=== PATIENT | male | born 1965 | race African-American/Black ===

== ENCOUNTER 2023-04-27 16:41 | Outpatient (AMB) | payer OTHER, SELFPAY ==
--- NOTE | 2023-04-27 16:46 | HO.NEPHOV_ITS ---
HPI HPI Comments History of Present Illness Details I had the privilege of seeing Mr Sy in follow-up of his chronic kidney disease and hypertension. He claims to be compliant with medications. He has gained some weight. He denies taking nonsteroidal anti-inflammatories. He claims to be hydrated himself well. He does not check his blood pressure regularly at home but does it couple of times a month. He claimed that his blood pressure has been at goal at home. He denies any headache, visual disturbances, chest tightness, chest pressure, shortness of breath, paroxysmal nocturnal dyspnea, orthopnea, pedal edema, orthostatic symptoms. He takes all his antihypertensive medications in the morning and 2 hours after that he feels a little bit lightheaded. He has not had any physician follow-up for long time. He denies having a PCP. He wanted a refill of all his antihypertensive medications. [facility] Medical History (Updated 04/28/23 @ 13:18 by Arnie Briseno MD) Hypertension Chronic kidney disease Social History (Updated 04/27/23 @ 16:50 by Breann Robertson MA) Alcohol intake: never Patient Tobacco Use Status: Never used Tobacco Vital Signs 04/27/23 16:47 Height 5 ft 6 in Weight 218 lb 6 oz BMI 35.2 BP 150/100 H Blood Pressure Location Lt brachial Pulse 58 Pulse Source Pulse Oximeter Pulse Oximetry (%) 99 Oxygen Delivery Method Room Air Physical Exam Vital Signs: Last Vital Signs Pulse 58 04/27/23 16:47 BP 150/100 H 04/27/23 16:47 Pulse Ox 99 04/27/23 16:47 Oxygen Delivery Method Room Air 04/27/23 16:47 BMI result Body Mass Index 35.2 Const General: comfortable and no acute distress Orientation/consciousness: patient oriented x3 HEENT Head: Yes normocephalic Mouth: Normal oral and palatal mucosa present Eyes EOM: EOMs intact bilaterally Neck Neck: Yes supple Resp Auscultation: clear to auscultation bilaterally Cardio Jugular venous distension: no JVD Rate: regular rate GI Palpation (GI): Soft to palpation Auscultation: normal bowel sounds General: Yes no CVA tenderness Back/Spine/Pelvis Back: no CVA tenderness Skin General skin exam: no rashes or lesions noted Neuro General: patient oriented x3 and moves all extremities Extrem General: Yes no pedal edema Assessment & Plan Assessment & Plan (1) Hypertension: Code(s): I10 - Essential (primary) hypertension Qualifiers: Hypertension type: primary hypertension Qualified Code(s): I10 - Essential (primary) hypertension (2) CKD (chronic kidney disease) stage 3, GFR 30-59 ml/min: Code(s): N18.30 - Chronic kidney disease, stage 3 unspecified Qualifiers: Chronic kidney disease stage 3 subtype: stage 3a (GFR 45-59) Qualified Code(s): N18.31 - Chronic kidney disease, stage 3a Plan Mr Sy has longstanding hypertension and 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 He needs to lose some weight. He should cut back sodium in the diet. He needs to avoid nonsteroidal anti-inflammatories and maintain good hydration. I encouraged compliance with his medications. I asked him to take nifedipine and metoprolol in the morning and lisinopril at night. I encouraged him to monitor his blood pressure at home regularly. I ordered renal functions and urine for protein creatinine ratio. He denied having left ventricular hypertrophy, proteinuria or retinopathy. He may need Doppler of his renal arteries. I refilled all his antihypertensive medications. All questions answered. Follow-up appointment given. Orders: Orders Blood Urea Nitrogen 04/27/23 I10 - Essential (primary) hypertension Calcium 04/27/23 I10 - Essential (primary) hypertension Protein Creatinine Ratio, Ur 04/27/23 I10 - Essential (primary) hypertension Electrolytes 04/27/23 I10 - Essential (primary) hypertension Creatinine 04/27/23 I10 - Essential (primary) hypertension Medications: New 2 lisinopril 10 mg PO DAILY 90 tabs 1RF nifedipine ER 90 mg PO DAILY 90 tabs 1RF Refilled metoprolol succinate ER 50 mg PO DAILY 90 tabs 1RF Coding Level of Care Code Est Pt Level 4 (01905) Diagnoses Primary hypertension I10 Hypertension type: primary hypertension Stage 3a chronic kidney disease N18.31 Chronic kidney disease stage 3 subtype: stage 3a (GFR 45-59) Results Reviewed Nephrology Results: No Data to Display
[2023-04-27 16:47] VITALS: BP 150/100; PULSE 58; O2SAT 99; BMI 35.2
== END 2023-04-27 17:09 | disposition home or self-care (01) ==
PROVIDERS: Visit Provider Internal Medicine Nephrology
DX: I10 Essential (primary) hypertension (principal); N18.31 Chronic kidney disease, stage 3a
CPT/HCPCS: 99214

== ENCOUNTER → 2023-04-27 16:41 | Outpatient (BNVA) | payer OTHER, SELFPAY | PROVIDERS: Visit Provider Internal Medicine Nephrology | DX: I12.9 Hypertensive chronic kidney disease with stage 1 through stage 4 chronic kidney disease, or unspecified chronic kidney disease (principal); N18.31 Chronic kidney disease, stage 3a | CPT/HCPCS: 99212 ==

== ENCOUNTER 2023-06-08 14:35 | Outpatient (REF) | payer OTHER, SELFPAY ==
[2023-06-08 19:41] LABS: Anion Gap 11 (12-20); Blood Urea Nitrogen 11 mg/dL (9-16); Carbon Dioxide 29 mmol/L (22-29); Chloride 103 mmol/L (96-108); Estimated Glomerular Filt Rate > 60; Potassium 3.7 mmol/L (3.3-5.1); Sodium 139 mmol/L (135-145)
[2023-06-08 20:10] LABS: Creatinine Urine 62.52 mg/dL; Total Protein Urine Random < 7 mg/dL (<12)
== END 2023-06-08 14:36 | disposition home or self-care (01) ==
LOC: HO.HKASLDS 14:35
PROVIDERS: Visit Provider Internal Medicine Nephrology
DX: I10 Essential (primary) hypertension (principal)
CPT/HCPCS: 36415; 80051; 82310; 82565; 82570; 84156; 84520

== ENCOUNTER 2024-01-04 10:12 | Outpatient (AMB) | payer OTHER, SELFPAY ==
--- NOTE | 2024-01-04 10:17 | HO.NEPHOV_ITS ---
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 He claims to be compliant with medications. He has gained some weight. He denies taking nonsteroidal anti-inflammatories. He claims to be hydrated himself well. He does not check his blood pressure regularly at home but does it couple of times a month. He claimed that his blood pressure has been at goal at home. He denies any headache, visual disturbances, chest tightness, chest pressure, shortness of breath, paroxysmal nocturnal dyspnea, orthopnea, pedal edema, orthostatic symptoms. He has not had any physician follow-up for long time. He denies having a PCP. [facility] Medical History (Updated 04/28/23 @ 13:18 by Arnie Briseno MD) Hypertension Chronic kidney disease Social History Alcohol intake: never Patient Tobacco Use Status: Never used Tobacco Review of Systems Const All systems reviewed & are unremarkable except as noted in HPI and below Physical Exam Vital Signs: Last Vital Signs Pulse 62 01/04/24 10:18 BP 150/90 H 01/04/24 10:18 Pulse Ox 98 01/04/24 10:18 Oxygen Delivery Method Room Air 01/04/24 10:18 BMI result Body Mass Index 35.6 Const General: comfortable and no acute distress Orientation/consciousness: patient oriented x3 HEENT Head: Yes normocephalic Mouth: Normal oral and palatal mucosa present Eyes EOM: EOMs intact bilaterally Neck Neck: Yes supple Resp Auscultation: clear to auscultation bilaterally Cardio Jugular venous distension: no JVD Rate: regular rate GI Palpation (GI): Soft to palpation Auscultation: normal bowel sounds General: Yes no CVA tenderness Back/Spine/Pelvis Back: no CVA tenderness Skin General skin exam: no rashes or lesions noted Neuro General: patient oriented x3 and moves all extremities Extrem General: Yes no pedal edema Results Reviewed Nephrology Results: Sodium 139 mmol/L (135-145) 06/08/23 Potassium 3.7 mmol/L (3.3-5.1) 06/08/23 Chloride 103 mmol/L (96-108) 06/08/23 Carbon Dioxide 29 mmol/L (22-29) 06/08/23 BUN 11 mg/dL (9-16) 06/08/23 Creatinine 1.11 mg/dL (0.5-1.4) 06/08/23 Calcium 9.0 mg/dL (8.4-10.2) 06/08/23 Urine Creatinine 62.52 mg/dL 06/08/23 Protein/Creatinin Ratio TNP 06/08/23 Assessment & Plan Assessment & Plan (1) CKD (chronic kidney disease) stage 3, GFR 30-59 ml/min: Code(s): N18.30 - Chronic kidney disease, stage 3 unspecified Category: Medical Qualifiers: Chronic kidney disease stage 3 subtype: stage 3a (GFR 45-59) Qualified Code(s): N18.31 - Chronic kidney disease, stage 3a (2) Hypertension: Code(s): I10 - Essential (primary) hypertension Category: Medical Qualifiers: Hypertension type: primary hypertension Qualified Code(s): I10 - Es sential (primary) hypertension Plan Mr Sy has longstanding hypertension and 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 He needs to lose some weight. He should cut back sodium in the diet. He needs to avoid nonsteroidal anti-inflammatories and maintain good hydration. I encouraged compliance with his medications. I encouraged him to monitor his blood pressure at home regularly. I ordered renal functions and urine for protein creatinine ratio. He denied having left ventricular hypertrophy, proteinuria or retinopathy. He may need Doppler of his renal arteries as well as sleep study. I refilled all his antihypertensive medications. All questions answered. Follow-up appointment given Orders: Orders Creatinine Today I10 - Essential (primary) hypertension, N18.31 - Chronic kidney disease, stage 3a Blood Urea Nitrogen Today I10 - Essential (primary) hypertension, N18.31 - Chronic kidney disease, stage 3a Electrolytes Today I10 - Essential (primary) hypertension, N18.31 - Chronic kidney disease, stage 3a Medications: Refilled lisinopril 10 mg PO DAILY 90 tabs 1RF metoprolol succinate ER 50 mg PO DAILY 90 tabs 1RF nifedipine ER 90 mg PO DAILY 90 tabs 1RF Coding Level of Care Code Est Pt Level 4 (30729) Diagnoses Stage 3a chronic kidney disease N18.31 Chronic kidney disease stage 3 subtype: stage 3a (GFR 45-59) Primary hypertension I10 Hypertension type: primary hypertension
[2024-01-04 10:18] VITALS: BP 130/90; PULSE 62; O2SAT 98; BMI 35.6
== END 2024-01-04 10:49 | disposition home or self-care (01) ==
PROVIDERS: Visit Provider Internal Medicine Nephrology
DX: N18.31 Chronic kidney disease, stage 3a (principal); I10 Essential (primary) hypertension
CPT/HCPCS: 99214

== ENCOUNTER → 2024-01-04 10:12 | Outpatient (BNVA) | payer OTHER, SELFPAY | PROVIDERS: Visit Provider Internal Medicine Nephrology | DX: I12.9 Hypertensive chronic kidney disease with stage 1 through stage 4 chronic kidney disease, or unspecified chronic kidney disease (principal); N18.31 Chronic kidney disease, stage 3a | CPT/HCPCS: 99212 ==

== ENCOUNTER 2024-07-06 09:16 | Outpatient (AMB) | payer OTHER, SELFPAY ==
--- NOTE | 2024-07-06 09:27 | HO.NEPHOV ---
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 He claims to be compliant with medications. He has gained some weight. He denies taking nonsteroidal anti-inflammatories. He claims to be hydrated himself well. He does not check his blood pressure regularly at home but does it couple of times a month. He claimed that his blood pressure has been at goal at home. He denies any headache, visual disturbances, chest tightness, chest pressure, shortness of breath, paroxysmal nocturnal dyspnea, orthopnea, pedal edema, orthostatic symptoms. He has not blood pressure medication this morning yet [facility], [facility] Medical History (Updated 04/28/23 @ 13:18 by Arnie Briseno MD) Hypertension Chronic kidney disease Social History Alcohol intake: never Patient Tobacco Use Status: Never used Tobacco Review of Systems Const All systems reviewed & are unremarkable except as noted in HPI and below Physical Exam Vital Signs: Last Vital Signs Pulse 59 07/06/24 09:28 BP 162/100 H 07/06/24 09:28 Pulse Ox 96 07/06/24 09:28 Oxygen Delivery Method Room Air 07/06/24 09:28 BMI result Body Mass Index 35.2 Const General: comfortable and no acute distress Orientation/consciousness: patient oriented x3 HEENT Head: Yes normocephalic Mouth: Normal oral and palatal mucosa present Eyes EOM: EOMs intact bilaterally Neck Neck: Yes supple Resp Auscultation: clear to auscultation bilaterally Cardio Jugular venous distension: no JVD Rate: regular rate GI Palpation (GI): Soft to palpation Auscultation: normal bowel sounds General: Yes no CVA tenderness Back/Spine/Pelvis Back: no CVA tenderness Skin General skin exam: no rashes or lesions noted Neuro General: patient oriented x3 and moves all extremities Extrem General: Yes no pedal edema Assessment & Plan Assessment & Plan (1) CKD (chronic kidney disease) stage 3, GFR 30-59 ml/min: Code(s): N18.30 - Chronic kidney disease, stage 3 unspecified Category: Medical Qualifiers: Chronic kidney disease stage 3 subtype: stage 3a (GFR 45-59) Qualified Code(s): N18.31 - Chronic kidney disease, stage 3a (2) Hypertension: Code(s): I10 - Essential (primary) hypertension Category: Medical Qualifiers: Hypertension type: primary hypertension Qualified Code(s): I10 - Essential (primary) hypertension Plan Mr Sy has longstanding hypertension and 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 He needs to lose some weight. He should cut back sodium in the diet. He needs to avoid nonsteroidal anti-inflammatories and maintain good hydration. I encouraged compliance with his medications. I encouraged him to monitor his blood pressure at home regularly. I ordered renal functions for F/U . He denied having left ventricular hypertrophy, proteinuria or retinopathy. He may need Doppler of his renal arteries as well as sleep study. All questions answered. Follow-up appointment given Orders: Orders Creatinine 6 Months I10 - Essential (primary) hypertension, N18.31 - Chronic kidney disease, stage 3a Electrolytes 6 Months I10 - Essential (primary) hypertension, N18.31 - Chronic kidney disease, stage 3a Blood Urea Nitrogen 6 Months I10 - Essential (primary) hypertension, N18.31 - Chronic kidney disease, stage 3a Coding Level of Care Code Est Pt Level 4 (59974) Diagnoses Stage 3a chronic kidney disease N18.31 Chronic kidney disease stage 3 subtype: stage 3a (GFR 45-59) Primary hypertension I10 Hypertension type: primary hypertension
[2024-07-06 09:28] VITALS: BP 162/100; PULSE 59; O2SAT 96; BMI 35.2
--- OUTSIDE RECORDS SUMMARY | 2024-07-06 09:51 | XMS_ITS | Clinical Summary ---
Author Organization [place] [address] [facility] Address [facility] [place] [address] Phone Care Team Providers Care Software Configuration Manager Name Role Phone Geno Katz Primary Care Provider [phone] Allergies Active Allergy Reactions Criticality Noted Date Comments Fruit Extracts 07/05/2024 Fresh fruit Pollen Extracts 07/05/2024 Medications cetirizine (ZyrTEC) 10 mg tablet Take 1 tablet (10 mg total) by mouth 1 (one) time each day. 4 Active cholecalciferol (VITAMIN D-3) 50 mcg (2,000 unit) tablet Take 1 tablet (2,000 Units total) by mouth 1 (one) time each day. 3 Active omega-3 (FISH OIL) 360-1,200 mg capsule [place]-3 Fatty Acids ([employer] Fish Oil) 1200 MG CAPSULE DELAYED RELEASE- Take 1 Tablet by mouth daily. 4 Active naproxen (EC NAPROSYN) 500 mg EC tablet Take 1 tablet twice a day for 14 days. Take with food 28 tablet 5 Active cyclobenzaprine (FLEXERIL) 10 mg tablet Take 1 tablet (10 mg total) by mouth 3 (three) times a day if needed for muscle spasms for up to 7 days. 21 each 5 Active senna 8.6 mg tabletIndications :Constipation, unspecified constipation type Take 1 tablet (8.6 mg total) by mouth 1 (one) time each day. 90 each 1 5 01/02/20 25 Active lisinopriL (PRINIVIL,ZESTRIL ) 10 mg tabletIndications :Primary hypertension Take 1 tablet (10 mg total) by mouth 1 (one) time each day. 90 each 1 5 01/02/20 25 Active metoprolol succinate (TOPROL-XL) 50 mg 24 hr tabletIndications :Primary hypertension Take 1 tablet (50 mg total) by mouth 1 (one) time each day. 90 each 1 5 01/02/20 25 Active NIFEdipine CC (ADALAT CC) 90 mg 24 hr tabletIndications :Primary hypertension Take 1 tablet (90 mg total) by mouth 1 (one) time each day. 90 tablet 1 5 01/02/20 25 Active ibuprofen (ADVIL,MOTRIN) 800 mg tabletIndications :Chronic bilateral low back pain without sciatica Take 1 tablet (800 mg total) by mouth 1 (one) time each day if needed for mild pain (pain). 90 tablet 5 10/04/19 25 Active lisinopriL (PRINIVIL,ZESTRIL ) 10 mg tablet Take 1 tablet (10 mg total) by mouth 1 (one) time each day. 3 07/06/19 25 Discontinu ed(Reorder ) metoprolol succinate (TOPROL-XL) 50 mg 24 hr tablet Take 1 tablet (50 mg total) by mouth 1 (one) time each day. 3 07/06/19 25 Discontinu ed(Reorder ) NIFEdipine CC (ADALAT CC) 90 mg 24 hr tablet Take 1 tablet (90 mg total) by mouth 1 (one) time each day. 3 07/06/19 25 Discontinu ed(Reorder ) predniSONE (DELTASONE) 20 mg tablet Take 2 tablets daily for 3 days then take 1 tablet daily for 3 days, then half tablet daily for another 3 days. 4 07/06/19 25 Discontinu ed(Therapy completed) senna 8.6 mg tablet TAKE 1 TABLET (8.6 MG TOTAL) BY MOUTH 1 (ONE) TIME EACH DAY. 90 tablet 5 07/06/19 25 Discontinu ed(Reorder ) Active Problems Problem Noted Date Diagnosed Date Severe obesity (BMI 35.0-35. 9 with comorbidity) ([facility] V24, [facility] V28) 01/18/2024 Primary hypertension 04/10/2021 Encounters Date Type Department Care Team Description 07/05/2024 9:00 AM EDT Office Visit Internal Medicine - [address] [phone] Leonela Burnett, ELIZABETH Adult general medical examination (Primary Dx); Primary hypertension; Constipation, unspecified constipation type; Other fatigue; Chronic bilateral low back pain without sciatica; Screening for cardiovascular condition; Screening for prostate cancer 04/28/2024 9:30 AM EST Office Visit Walk-In Clinic - [address] [phone] Rakesh Cabrales NP Strain of left trapezius muscle, initial encounter (Primary Dx) 04/27/2024 Nurse Triage Internal Medicine - [address] [phone] Geno Katz, DO Back Pain from Last 3 Months Immunizations Name Administration Dates Next Due Tdap Tetanus diptheria acell ular pertussis (Boostrix; Adacel) 7yo and older 10/24/2021 Social History Tobacco Use Types Packs/Day Years Used Date Smoking Tobacco: Never Smokeless Tobacco: Never Tobacco Cessation:Counseling Given: Not Answered Sex and Gender Information Value Date Recorded Sex Assigned at Not on file Legal Sex Male 6:16 AM EST Gender Identity Not on file Sexual Orientation Not on file Obstetrics History Last Filed Vital Signs Vital Sign Reading Time Taken Comments Blood Pressure 122/78 07/05/2024 9:04 AM EDT Pulse 62 07/05/2024 9:04 AM EDT Temperature 36.4 ??C (97.5 ??F) 04/28/2024 9:39 AM ES T Respiratory Rate - - Oxygen Saturation 96% 04/28/2024 9:39 AM EST Inhaled Oxygen Concentration - - Weight 102 kg (224 lb) 07/05/2024 9:04 AM EDT Height 167.6 cm (5' 6 ) 07/05/2024 9:04 AM EDT Body Mass Index 36.15 07/05/2024 9:04 AM EDT Plan of Treatment Health Maintenance Due Date Last Done Comments Hepatitis B Vaccines (1 of 3 - 19+ 3-dose series) 1985 IPV Vaccines (2 of 3 - Adult catch-up series) 02/08/2006 01/11/2006 Zoster Vaccines (1 of 2) 2016 COVID-19 Vaccine (1 - 2023-2 5 season) 2023 Influenza Vaccine (Season Ended) 2024 Depression Screening 07/05/2025 07/05/2024 Hypertension/CHF/CAD Annual BMP Blood Test 07/05/2025 07/05/2024, 03/01/2024, 02/02/2023 Social Influencers of Health Screening 07/05/2025 07/05/2024 Cholesterol Screening (Lipid Panel) 07/05/2029 07/05/2024, 11/05/2022 DTaP,Tdap,and Td Vaccines (2 - Td or Tdap) 10/25/2031 10/24/2021 Colorectal Cancer Screening: Colonoscopy 05/18/2032 05/18/2022 Meningococcal ACWY Vaccine Aged Out 01/11/2006 N o longer eligible based on patient's age to complete this topic Hepatitis A Vaccines Aged Out 09/06/2006, 01/11/2006 No longer eligible based on patient's age to complete this topic Hepatitis C Screening Completed 05/01/2021 HIB Vaccines Aged Out No longer eligi ble based on patient's age to complete this topic HIV Screening Discontinued HPV Vaccines Aged Out No longer eligi ble based on patient's age to complete this topic MMR Vaccines Aged Out No longer eligi ble based on patient's age to complete this topic Meningococcal B Vaccine Aged Out No l onger eligible based on patient's age to complete this topic Pneumococcal Vaccine: 50+ Years Discontinued Pneumococcal Vaccine: Pediatrics (0 to 5 Years) and At-Risk Patients (6 to 64 Years) Aged Out No longer eligible based on patient's age to complete this topic RSV Immunization Patients Under 20 months Aged Out No longer eligible based on patient's age to complete this topic Varicella Vaccines Aged Out No longer eligible based on patient's age to complete this topic Procedures Procedure Name Priority Date/Time Associated Diagnosis Comments PROSTATE SPECIFIC ANTIGEN SCREEN Routine 07/05/2024 10:01 AM EDT Screening for prostate cancer LIPID PANEL WITH REFLEX TO DIRECT LDL Routine 07/05/2024 10:01 AM EDT Screening for cardiovascular condition BASIC METABOLIC PANEL Routine 07/05/2024 10:01 AM EDT Screening for cardiovascular condition HEPATIC FUNCTION PANEL Routine 07/05/2024 10:01 AM EDT Adult general medical examination TESTOSTERONE, TOTAL Routine 07/05/2024 1 0:01 AM EDT Other fatigue HM COLONOSCOPY Routine 05/18/2022 HEPATITIS C SCREENING Routine 05/01/2021 from Last 3 Months or Most Recently Relevant to Health Maintenance Results * Prostate specific antigen screen (07/05/2024 10:01 AM EDT) PSA 0.49 0.00 - 4.00 ng/mL LAB CHEMISTRY METHOD 07/05/2024 4:53 PM EDT [facility] Blood Venous blood specimen / Unknown Venipuncture / Unknown 07/05/2024 10:01 AM EDT 07/05/2024 10:01 AM EDT Narrative [facility] - 07/05/2024 4:53 PM EDT The Siemens Advia Centaur Chemiluminescent Immunoassay is used. Results obtained with different assay methods or kits cannot be used interchangeably. Results cannot be interpreted as absolute evidence of the presence or absence of malignant disease. us Leonela Burnett NP LAB BLOOD ORDERABLES Final Resul t [facility] [address] [place] [address], * (ABNORMAL) Lipid panel with reflex to direct LDL (07/05/2024 10:01 AM EDT) Cholesterol 207(H) 0 - 200 mg/dL LAB CHEMISTRY METHOD 07/05/2024 2:07 PM EDT [facility] Triglycerides 91 0 - 150 mg/dL LAB CHEMISTRY METHOD 07/05/2024 2:07 PM EDT [facility] HDL 60 >=40 mg/dL LAB CHEMISTRY METHOD 07/05/2024 2:07 PM EDT [facility] LDL Calculated 129(H) 0 - 100 mg/dL LAB CHEMISTRY METHOD 07/05/2024 2:07 PM EDT [facility] VLDL Cholesterol Sai 18.2 mg/dL LAB CHEMISTRY METHOD 07/05/2024 2:07 PM EDT [facility] Non HDL Chol. (LDL+VLDL) 147(H) <145 mg/dL LAB CHEMISTRY METHOD 07/05/2024 2:07 PM EDT [facility] Chol/HDL Ratio 3.5 0.0 - 4.4 LAB CHEMISTRY METHOD 07/05/2024 2:07 PM EDT [facility] Blood Venous blood specimen / Unknown Venipuncture / Unknown 07/05/2024 10:01 AM EDT 07/05/2024 10:01 AM EDT us Leonela Burnett NP LAB BLOOD ORDERABLES Final Resul t Performing Organization Address [facility]/ZIP Co de Phone Number [facility] [address] [place] [address], [place] [phone] * Testosterone, total (07/05/2024 10:01 AM EDT) Testosterone 474 229 - 902 ng/dL LAB CHEMISTRY METHOD 07/05/2024 6:12 PM EDT [facility] Blood Venous blood specimen / Unknown Venipuncture / Unknown 07/05/2024 10:01 AM EDT 07/05/2024 10:01 AM EDT us Leonela Burnett NP LAB BLOOD ORDERABLES Final Resul t [facility] [address] [place] [address], [place] [phone] * Hepatic function panel (07/05/2024 10:01 AM EDT) Total Protein 6.6 6.0 - 8.0 g/dL LAB CHEMISTRY METHOD 07/05/2024 2:07 PM EDT [facility] Albumin 3.6 3.2 - 5.0 g/dL LAB CHEMISTRY METHOD 07/05/2024 2:07 PM EDT [facility] Total Bilirubin 0.4 0.0 - 1.4 mg/dL LAB CHEMISTRY METHOD 07/05/2024 2:07 PM [facility] Bilirubin, Direct <0.1 0.0 - 0.3 mg/dL LAB CHEMISTRY METHOD 07/05[facility]2024 [facility] Bil[facility], Indirect [facility]Y METHOD 07/05/2024 2:[facility] Comment:Unable to calculate Indirect Bilirubin. ALT (SGPT) 21 10 - 60 unit/L LAB CHEMISTRY METHOD 07/05/2024 2:07 PM [facility] AST (SGOT) 17 10 - 42 unit/L LAB CHEMISTRY METHOD 07/05/2024 2:07 PM [facility] Alkaline Phosphatase 63 42 - 121 unit/L LAB CHEMISTRY METHOD 07/05/2024 2:07 PM T [facility] Blood Venous blood specimen / Unknown Venipuncture / Unknown 07/05/2024 10:01 AM EDT 07/05/2024 10:01 AM EDT Leonela Burnett NP LAB BLOOD ORDERABLES Final Resul t Performing Organization Address [facility]/ZIP Co de Phone Number [facility] [address] [place] [address], [place] [phone] * (ABNORMAL) Basic metabolic panel (07/05/2024 10:01 AM EDT) Sodium 143 133 - 145 mmol/L LAB CHEMISTRY METHOD 07/05/2024 2:05 PM [facility] Potassium 4.9 3.5 - 5.5 mmol/L LAB CHEMISTRY METHOD 07/05/2024 2:05 PM [facility] Chloride 112(H) 96 - 110 mmol/L LAB CHEMISTRY METHOD 07/05/2024 2:05 PM [facility] CO2 27 21 - 32 mmol/L LAB CHEMISTRY METHOD 07/05/2024 2:05 PM [facility] Anion Gap 4 3 - 11 LAB CHEMISTRY METHOD 07/05/2024 2:05 PM [facility] Glucose 83 70 - 100 mg/dL LAB CHEMISTRY METHOD 07/05/2024 2:05 PM [facility] BUN 11 5 - 25 mg/dL LAB CHEMISTRY METHOD 07/05/2024 2:05 PM [facility] Creatinine 1.28 0.70 - 1.30 mg/dL LAB CHEMISTRY METHOD 07/05/2024 2:05 PM [facility] eGFR 65 >=60 mL/min/1. 73m2 LAB CHEMISTRY METHOD 07/05/2024 2:05 PM [facility] Comment:Calculation based on the Chronic Kidney Disease Epidemiology Collaboration (CKD-EPI) equation refit without adjustment for race. BUN/Creatinine Ratio 8.6 LAB CHEMISTRY METHOD 07/05/2024 2:05 PM [facility] Calcium 9.3 8.5 - 10.5 mg/dL LAB CHEMISTRY METHOD 07/05/2024 2:05 PM [facility] Blood Venous blood specimen / Unknown Venipuncture / Unknown 07/05/2024 10:01 AM EDT 07/05/2024 10:01 AM EDT Leonela Burnett DIRECTOR HARDWARE LAB BLOOD ORDERABLES Final Resul t [facility] [address] [place] [address], * Colonoscopy (05/18/2022) Colonoscopy no interpretation , abstracted Anatomical Region Laterality Modality Other Historical Provider MD HEALTH MAINTENANCE Final Result * Hepatitis C Screening (05/01/2021) Hepatitis C Screening abstracted Historical Provider MD HEALTH MAINTENANCE Final Result from Last 3 Months or Most Recently Relevant to Health Maintenance Insurance [facility] [employer] Care Teams Software Configuration Manager Relationship Specialty Start Date End Date Geno Katz DO [address] [place] [address] PCP - General Internal Medicine 12/22/23
--- OUTSIDE RECORDS SUMMARY | 2024-07-06 09:51 | XMS_ITS | Clinical Summary ---
Author Organization [facility] Address [address] [facility] [address] [place] [address] Phone Care Team Providers Care Kiln Stacker Name Role Phone Jacinto Ulloa MD Primary Care Provider [phone] Allergies Active Allergy Reactions Criticality Noted Date Comments Fruit Extracts 11/03/2021 Medications omega-3 (FISH OIL) 1000 MG capsule Take 1,000 mg by mouth 2 (two) times a day Active cholecalciferol (VITAMIN D-3) 25 MCG (1000 UT) capsule Take 1,000 Units by mouth 1 (one) time each day Active metoprolol succinate XL (TOPROL XL) 50 MG 24 hr tablet Take 1 tablet (50 mg total) by mouth 1 (one) time each day Do not crush or chew. 90 tablet 3 11/03/2021 Active NIFEdipine XL (PROCARDIA XL) 60 MG 24 hr tablet Take 1 tablet (60 mg total) by mouth 1 (one) time each day Do not crush, chew, or split. 90 tablet 3 11/03/2021 Active Active Problems Problem Noted Date Diagnosed Date Severe obesity 04/10/2021 Hypertension 11/04/2020 Benign essential hypertension 08/20/2020 Immunizations Immunization Administration Dates Next Due Hep A, Unspecified 09/06/2006,01/11/2006 IPV 01/11/2006 Meningococcal, Unspecified 01/11/2006 Tdap 10/24/2021 Yellow Fever 01/11/2006 Family History Relation Status Comments Father Mother Social History Tobacco Use Types Packs/Day Years Used Date Smoking Tobacco: Never Smokeless Tobacco: Never Tobacco Cessation:Counseling Given: Not Answered Alcohol Use Standard Drinks/Week Comments No 0 (1 standard drink = 0.6 oz pur e alcohol) Sex and Gender Information Value Date Recorded Sex Assigned at Not on file Legal Sex Male 5:02 PM EST Gender Identity Not on file Sexual Orientation Not on file Last Filed Vital Signs Vital Sign Reading Time Taken Comments Blood Pressure 130/80 11/03/2021 1:31 PM EDT Pulse 70 11/03/2021 1:31 PM EDT Temperature - - Respiratory Rate - - Oxygen Saturation 98% 11/04/2020 1:57 PM EDT Inhaled Oxygen Concentration - - Weight 101 kg (221 lb 12.8 oz) 11/03/2021 1:31 P M EDT Height 167.6 cm (5' 6 ) 06/06/2019 12:00 PM EDT Body Mass Index 35.8 06/06/2019 12:00 PM EDT Plan of Treatment Health Maintenance Due Date Last Done Comments Hepatitis B Vaccine (1 of 3 - 19+ 3-dose series) 12/13 Colorectal Cancer Screening: Annual FOBT 12/14/2015 Colorectal Cancer Screening: Colonoscopy 12/14/2015 Colorectal Cancer Screening: Sigmoidoscopy 12/14/2015 Pneumococcal Vaccine: 50+ Years (1 of 1 - PCV) 017 Influenza Vaccine (Season Ended) 2024 Insurance Care Teams Kiln Stacker Relationship Specialty Start Date End Date Jacinto Ulloa MD PCP - General 03/04/20
--- OUTSIDE RECORDS SUMMARY | 2024-07-06 09:51 | XMS_ITS | Encounter Summary ---
Author Organization [facility] Address [address] [place] [address] Care Team Providers Care Admission Specialist Name Role Phone SterlingGeno Primary Care Provider [phone] Reason for Referral * Consultation (Routine) - Pending Review Specialty Diagnoses / Procedures Referred By Heidi cage Referred To Contact Physical Therapy Diagnoses Chronic bilateral low back pain without sciatica Leonela Burnett NP [address] [place] [id number] Phone: tel: fax: Referral ID Status Reason Start Date Expiration Date Visits Requested Visits Authorized [id number] Pending Review Specialty Services Required 07/05/2024 07/05/2025 1 1 Reason for Visit * Reason Comments Annual Exam Encounter Details Date Type Department Care Team (Late st Contact Info) Description 07/05/2024 9:00 AM EDT Office Visit Internal Medicine - [address] [phone] Leonela Burnett NP [address] [place] [phone] Adult general medical examination (Primary Dx); Primary hypertension; Constipation, unspecified constipation type; Other fatigue; Chronic bilateral low back pain without sciatica; Screening for cardiovascular condition; Screening for prostate cancer Social History Tobacco Use Types Packs/Day Years Used Date Smoking Tobacco: Never Smokeless Tobacco: Never Tobacco Cessation:Counseling Given: Not Answered Sex and Gender Information Value Date Recorded Sex Assigned at Not on file Legal Sex Male 6:16 AM EST Gender Identity Not on file Sexual Orientation Not on file documented as of this encounter Last Filed Vital Signs Vital Sign Reading Time Taken Comments Blood Pressure 122/78 07/05/2024 9:04 AM EDT Pulse 62 07/05/2024 9:04 AM EDT Temperature - - Respiratory Rate - - Oxygen Saturation - - Inhaled Oxygen Concentration - - Weight 102 kg (224 lb) 07/05/2024 9:04 AM EDT Height 167.6 cm (5' 6 ) 07/05/2024 9:04 AM EDT Body Mass Index 36.15 07/05/2024 9:04 AM EDT documented in this encounter Ordered Prescriptions Prescription Sig Dispense Quantity Refills Last Filled Start Date End Date ibuprofen (ADVIL,MOTRIN) 800 mg tabletIndications: Chronic bilateral low back pain without sciatica Take 1 tablet (800 mg total) by mouth 1 (one) time each day if needed for mild pain (pain). 90 tablet 07/05/2024 10/03/2024 NIFEdipine CC (ADALAT CC) 90 mg 24 hr tabletIndications: Primary hypertension Take 1 tablet (90 mg total) by mouth 1 (one) time each day. 90 tablet 1 07/05/2024 01/01/2025 metoprolol succinate (TOPROL-XL) 50 mg 24 hr tabletIndications: Primary hypertension Take 1 tablet (50 mg total) by mouth 1 (one) time each day. 90 each 1 07/05/2024 01/01/2025 lisinopriL (PRINIVIL,ZESTRIL) 10 mg tabletIndications: Primary hypertension Take 1 tablet (10 mg total) by mouth 1 (one) time each day. 90 each 1 07/05/2024 01/01/2025 senna 8.6 mg tabletIndications: Constipation, unspecified constipation type Take 1 tablet (8.6 mg total) by mouth 1 (one) time each day. 90 each 1 07/05/2024 01/01/2025 documented in this encounter Progress Notes * Leonela Burnett NP - 07/05/2024 9:00 AM EDT CHIEF COMPLAINT: Chief Complaint Patient presents with Annual Exam HPI: Kerrie Daniels is a 58 y.o. old male who presents for evaluation of general medical health. - HTN on Nifedipine 90 mg daily, Lisinopril 10 mg daily and Metoprolol 50 mg daily, blood pressure 122/78 today. Denies headache, dizzoness, chest pain or dyspnea - Constipation on senna and prune juice as needed with relief -Request to check testosterone level due to intermittent fatigue - Chronic back pain, x-ray revealed mild arthritis in 2023, has tried Ibuprofen 800 mg daily as needed with relief. Will refer to PT stretching exercises to maintain joint flexibility Eye: UTD Dental: UTD Exercise: walking and treadmills regularly Health Maintenance Due Topic Date Due Hepatitis B Vaccines (1 of - 19+ 3-dose series) Never done IPV Vaccines (2 of 3 - Adult catch-up series) 02/08/2006 Pneumococcal Vaccine: 50+ Years (1 of 1 - PCV) Never done Zoster Vaccines (1 of 2) Never done Depression Screening Never done HIV Screening Never done Social Influencers of Health Screening Never done COVID-19 Vaccine (2023-) Never done ROS: GENERAL: See HPI HEENT: No changes in hearing or vision, nose bleeds or other nasal problems NECK: No lumps, goiter, pain or significant neck swelling RESPIRATORY: No cough, wheezing or shortness of breath CARDIOVASCULAR: No chest pain, leg swelling or palpitations GI: See HPI : No dysuria, frequency or incontinence MUSCULOSKELETAL: See HPI SKIN: No lesions, rash or itching PSYCH: No sleep disturbance, mood disorder or recent psychosocial stressors. HEMATOLOGY/LYMPHOLOGY No prolonged bleeding, easy bruisability or swollen nodes ENDOCRINE: No cold or heat intolerance, polyuria, polydipsia or goiter. NEURO: No persistent headache, syncope, seizures, weakness or numbness PAST MEDICAL HISTORY: Patient Active Problem List Diagnosis Date Noted Severe obesity (BMI 35.0-35.9 with comorbidity) (CMS/HCC V24, CMS/HCC V28) 01/18/2024 Primary hypertension 04/10/2021 PAST SURGICAL HISTORY: No past surgical history on file. IMMUNIZATIONS/INJECTIONS: Most Recent Immunizations Administered Date(s) Administered Tdap Tetanus diptheria acellular pertussis (Boostrix; Adacel) 7yo and older 10/24/2021 HEALTH MAINTENANCE: Health Maintenance Topic Date Due Hepatitis B Vaccines (1 of 3 - 19+ 3-dose series) Never done IPV Vaccines (2 of 3 - Adult catch-up series) 02/08/2006 Pneumococcal Vaccine: 50+ Years (1 of 1 - PCV) Never done Zoster Vaccines (1 of 2) Never done Depression Screening Never done HIV Screening Never done Social Influencers of Health Screening Never done COVID-19 Vaccine ( - 2023- season) Never done Influenza Vaccine (Season Ended) 2024 Hypertension/CHF/CAD Annual BMP Blood Test 03/01/2025 Cholesterol Screening (Lipid Panel) 11/06/2027 DTaP,Tdap,and Td Vaccines (2 - Td or Tdap) 10/25/2031 Colorectal Cancer Screening: Colonoscopy 05/18/2032 Hepatitis C Screening Completed HIB Vaccines Aged Out Hepatitis A Vaccines Aged Out MMR Vaccines Aged Out Varicella Vaccines Aged Out Meningococcal ACWY Vaccine Aged Out Meningococcal B Vaccine Aged Out HPV Vaccines Aged Out Pneumococcal Vaccine: Pediatrics (0 to 5 Years) and At-Risk Patients (6 to 64 Years) Aged Out RSV Immunization Patients Under 20 months Aged Out SOCIAL HISTORY: Social History Tobacco Use Smoking status: Never Smokeless tobacco: Never FAMILY HISTORY: No family history on file. ACTIVE MEDICATIONS: Current Outpatient Medications: cetirizine (ZyrTEC) 10 mg tablet, Take 1 tablet (10 mg total) by mouth 1 (one) time each day., Disp: , Rfl: cholecalciferol (VITAMIN D-3) 50 mcg (2,000 unit) tablet, Take 1 tablet (2,000 Units total) by mouth 1 (one) time each day., Disp: , Rfl: cyclobenzaprine (FLEXERIL) 10 mg tablet, Take 1 tablet (10 mg total) by mouth 3 (three) times a dayif needed for muscle spasms for up to 7 days., Disp: 21 each, Rfl: 0 lisinopriL (PRINIVIL,ZESTRIL) 10 mg tablet, Take 1 tablet (10 mg total) by mouth 1 (one) time each day., Disp: , Rfl: naproxen (EC NAPROSYN) 500 mg EC tablet, Take 1 tablet twice a day for 14 days. Take with food, Disp: 28 tablet, Rfl: 0 NIFEdipine CC (ADALAT CC) 90 mg 24 hr tablet, Take 1 tablet (90 mg total) by mouth 1 (one) time each day., Disp: , Rfl: omega-3 (FISH OIL) 360-1,200 mg capsule, Pyote-3 Fatty Acids ([employer] Fish Oil) 1200 MG CAPSULE DELAYEDRELEASE- Take 1 Tablet by mouth daily., Disp: , Rfl: predniSONE (DELTASONE) 20 mg tablet, Take 2 tablets daily for 3 days then take 1 tablet daily for 3days, then half tablet daily for another 3 days., Disp: , Rfl: senna 8.6 mg tablet, TAKE 1 TABLET (8.6 MG TOTAL) BY MOUTH 1 (ONE) TIME EACH DAY., Disp: 90 tablet,Rfl: 0 metoprolol succinate (TOPROL-XL) 50 mg 24 hr tablet, Take 1 tablet (50 mg total) by mouth 1 (one) time each day., Disp: , Rfl: ALLERGIES: Allergies Allergen Reactions Fruit Extracts Fresh fruit Pollen Extracts PHYSICAL EXAM: Visit Vitals BP 122/78 Pulse 62 Ht 1.676 m (66 ) Wt 102 kg (224 lb) BMI 36.15 kg/m?? Smoking Status Never BSA 2.1 m?? Body mass index is 36.15 kg/m??. APPEARANCE: Alert and in no acute distress EYES: PERRLA, conjunctiva and sclera normal. Normal fundal exam. EARS: External ears normal. Canals clear. TMs normal. NOSE/SINUS: Nares normal. Septum midline. Mucosa normal. No drainage or sinus tenderness. THROAT: no erythema or exudates NECK: Neck supple, no adenopathy, thyroid symmetric and of normal size HEART: RRR with normal S1 and S2 ,no murmurs, no gallops, no JVD appreciated LUNG: clear to auscultation LYMPH NODES: normal ABDOMEN: Bowel sounds normoactive, no bruits, soft, non-tender, without organomegaly or palpable masses (MALE): Deferred. BACK: No pain to palpation with good flexion and extension EXTREMITIES: Extremities warm and well perfused without clubbing, cyanosis, or edema NEURO: Awake, alert and oriented x 3 with symmetrical reflexes. Cranial nerves II-XII intact. SKIN: Skin color, texture, turgor normal. No rashes or lesions. LABS/IMAGING: No results found for: WBC , HGB , HCT , MCV No results found for: NA , K , CO2 , CL , BUN , GLU , ALB , ALKPHOS , TP Lab Results Component Value Date CHOL 222 (A) 11/05/2022 LDL 129 (A) 11/05/2022 HDL 75 11/05/2022 TRIG 90 11/05/2022 IMPRESSION/ Plan: 1. Adult general medical examination Hepatic function panel 2. Primary hypertension lisinopriL (PRINIVIL,ZESTRIL) 10 mg tablet metoprolol succinate (TOPROL-XL) 50 mg 24 hr tablet NIFEdipine CC (ADALAT CC) 90 mg 24 hr tablet 3. Constipation, unspecified constipation type senna 8.6 mg tablet 4. Other fatigue Testosterone, total 5. Chronic bilateral low back pain without sciatica ibuprofen (ADVIL,MOTRIN) 800 mg tablet Ambulatory referral to Physical Therapy and Athletic Training 6. Screening for cardiovascular condition Lipid panel with reflex to direct LDL Basic metabolic panel 7. Screening for prostate cancer Prostate specific antigen screen 1. Health maintenance: The patient presented for an evaluation of general health. As part of this visit, we reviewed the following issues, which are considered an essential part of preventative health in this age group: - Prostate cancer screening with digital rectal exam and PSA testing - ordered - Colon cancer screening (colonoscopy every 10 years/annual FOBT plus flexi sigmoidoscopy every 5 years/double-contrast BE every 5 years/Cologuard every 3 years/Annual FOBT) - up to date - Testicular cancer screening, which includes self-exam teaching - Blood pressure screening yearly - Cholesterol screening every five years - ordered - Nutritional and exercise counseling - patient advised to pursue at least 30 minutes of exercise most days of the week, limit portion sizes, eat breakfast, and avoid eating after dinner - Counseling of injury prevention including fire prevention, smoke alarms and seat belt usage - Screening for domestic abuse - Screening for Type 2 diabetes mellitus in those with hypertension and/or hyperlipidemia - Education about skin cancer - Recommendations about immunizations - patient is due for Herpes zoster (shingles) immunization but cannot be immunized until a supply is received - Recommendation of an eye exam for glaucoma every 2-4 years in this age range - patient is up-to-date - Genetic cancer risk screening - NO INDICATION: Hereditary Cancer Syndrome Risk Assessment completed and evaluated. No indication found for genetic testing at this time. - In addition to reviewing these issues, I have reviewed the following sections of the chart: Past Medical History, Social History, and Social History - RTO in 4 months or sooner with PCP care team documented in this encounter Plan of Treatment Scheduled Referrals Name Type Priority Associated Diagnoses Order Schedule Ambulatory referral to Physical Therapy and Athletic Training Outpatient Referral Routine Chronic bilateral low back pain without sciatica 1 Occurrences starting 07/05/2024 until 07/05/2025 documented as of this encounter Results * Testosterone, total (07/05/2024 10:01 AM EDT) [facility] Testosterone 474 229 - 902 ng/dL LAB CHEMISTRY METHOD 07/05/2024 6:12 PM EDT [facility] Blood Venous blood specimen / Unknown Venipuncture / Unknown 07/05/2024 10:01 AM EDT 07/05/2024 10:01 AM EDT us Leonela Burnett NP LAB BLOOD ORDERABLES Final Resul t [facility] [address] [place] [address], [place] [phone] * Hepatic function panel (07/05/2024 10:01 AM EDT) [facility] Total Protein 6.6 6.0 - 8.0 g/dL LAB CHEMISTRY METHOD 07/05/2024 2:07 PM EDT [facility] Albumin 3.6 3.2 - 5.0 g/dL LAB CHEMISTRY METHOD 07/05/2024 2:07 PM EDT [facility] Total Bilirubin 0.4 0.0 - 1.4 mg/dL LAB CHEMISTRY METHOD 07/05/2024 2:07 PM EDT [facility] Bilirubin, Direct <0.1 0.0 - 0.3 mg/dL LAB CHEMISTRY METHOD 07/05/2024 2:07 PM EDT [facility] Bilirubin, Indirect LAB CHEMISTRY METHOD 07/05/2024 2:07 PM EDT [facility] Comment:Unable to calculate Indirect Bilirubin. ALT (SGPT) 21 10 - 60 unit/L LAB CHEMISTRY METHOD 07/05/2024 2:07 PM [facility] AST (SGOT) 17 10 - 42 unit/L LAB CHEMISTRY METHOD 07/05/2024 2:07 PM [facility] Alkaline Phosphatase 63 42 - 121 unit/L LAB CHEMISTRY METHOD 07/05/2024 2:07 PM [facility] Blood Venous blood specimen / Unknown Venipuncture / Unknown 07/05/2024 10:01 AM EDT 07/05/2024 10:01 AM EDT Leonela Burnett NP LAB BLOOD ORDERABLES Final Resul t [facility] [address] [place] [address], [place] [phone] * (ABNORMAL) Basic metabolic panel (07/05/2024 10:01 AM EDT) Sodium 143 133 - 145 mmol/L LAB CHEMISTRY METHOD 07/05/2024 2:05 PM [facility] Potassium 4.9 3.5 - 5.5 mmol/L LAB CHEMISTRY METHOD 07/05/2024 2:05 PM [facility] Chloride 112(H) 96 - 110 mmol/L LAB CHEMISTRY METHOD 07/05/2024 2:05 PM [facility] CO2 27 21 - 32 mmol/L LAB CHEMISTRY METHOD 07/05/2024 2:05 PM [facility] Anion Gap 4 3 - 11 LAB CHEMISTRY METHOD 07/05/2024 2:05 PM [facility] Glucose 83 70 - 100 mg/dL LAB CHEMISTRY METHOD 07/05/2024 2:05 PM [facility] BUN 11 5 - 25 mg/dL LAB CHEMISTRY METHOD 07/05/2024 2:05 PM [facility] Creatinine 1.28 0.70 - 1.30 mg/dL LAB CHEMISTRY METHOD 07/05/2024 2:05 PM EDT [facility] eGFR 65 >=60 mL/min/1. 73m2 LAB CHEMISTRY METHOD 07/05/2024 2:05 PM T [facility] Comment:Calculation based on the Chronic Kidney Disease Epidemiology Collaboration (CKD-EPI) equation refit without adjustment for race. BUN/Creatinine Ratio 8.6 LAB CHEMISTRY METHOD 07/05/2024 2:05 PM EDT [facility] Calcium 9.3 8.5 - 10.5 mg/dL LAB CHEMISTRY METHOD 07/05/2024 2:05 PM [facility] Blood Venous blood specimen / Unknown Venipuncture / Unknown 07/05/2024 10:01 AM EDT 07/05/2024 10:01 AM EDT us Leonela Burnett NP LAB BLOOD ORDERABLES Final Resul t [facility] [address] [place] [address], [place] [phone] * (ABNORMAL) Lipid panel with reflex to direct LDL (07/05/2024 10:01 AM EDT) Cholesterol 207(H) 0 - 200 mg/dL LAB CHEMISTRY METHOD 07/05/2024 2:07 PM T [facility] Triglycerides 91 0 - 150 mg/dL LAB CHEMISTRY METHOD 07/05/2024 2:07 PM T [facility] HDL 60 >=40 mg/dL LAB CHEMISTRY METHOD 07/05/2024 2:07 PM EDT [facility] LDL Calculated 129(H) 0 - 100 mg/dL LAB CHEMISTRY METHOD 07/05/2024 2:07 PM [facility] VLDL Cholesterol Sai 18.2 mg/dL LAB CHEMISTRY METHOD 07/05/2024 2:07 PM EDT [facility] Non HDL Chol. (LDL+VLDL) 147(H) <145 mg/dL LAB CHEMISTRY METHOD 07/05/2024 2:07 PM EDT [facility] Chol/HDL Ratio 3.5 0.0 - 4.4 LAB CHEMISTRY METHOD 07/05/2024 2:07 PM EDT [facility] Blood Venous blood specimen / Unknown Venipuncture / Unknown 07/05/2024 10:01 AM EDT 07/05/2024 10:01 AM EDT Leonela Burnett NP LAB BLOOD ORDERABLES Final Resul t Performing Organization Address [facility]/ZIP Co de Phone Number [facility] [address] [place] [address], [place] [phone] * Prostate specific antigen screen (07/05/2024 10:01 AM EDT) PSA 0.49 0.00 - 4.00 ng/mL LAB CHEMISTRY METHOD 07/05/2024 4:53 PM EDT [facility] Blood Venous blood specimen / Unknown Venipuncture / Unknown 07/05/2024 10:01 AM EDT 07/05/2024 10:01 AM EDT Narrative [facility] - 07/05/2024 4:53 PM EDT The Siemens Advia Centaur Chemiluminescent Immunoassay is used. Results obtained with different assay methods or kits cannot be used interchangeably. Results cannot be interpreted as absolute evidence of the presence or absence of malignant disease. us Leonela Burnett NP LAB BLOOD ORDERABLES Final Resul t Performing Organization Address [facility]/ZIP Co de Phone Number [facility] [address] [place] [address], [place] [phone] documented in this encounter Visit Diagnoses Diagnosis Adult general medical examination- Primary Unspecified general medical examination Primary hypertension Unspecified essential hypertension Constipation, unspecified constipation type Other fatigue Chronic bilateral low back pain without sciatica Screening for cardiovascular condition Screening for other and unspecified cardiovascular conditions Screening for prostate cancer Special screening for malignant neoplasm of prostate documented in this encounter Discontinued Medications Medication Sig Discontinue Reason Start Date End Da te predniSONE (DELTASONE) 20 mg tablet Take 2 tablets daily for 3 days then take 1 tablet daily for 3 days, then half tablet daily for another 3 days. Therapy completed 03/02/2023 07/05/2024 senna 8.6 mg tablet TAKE 1 TABLET (8.6 MG TOTAL) BY MOUTH 1 (ONE) TIME EACH DAY. Reorder 03/13/2024 07/05/2024 lisinopriL (PRINIVIL,ZESTRIL) 10 mg tablet Take 1 tablet (10 mg total) by mouth 1 (one) time each day. Reorder 02/09/2023 07/05/2024 metoprolol succinate (TOPROL-XL) 50 mg 24 hr tablet Take 1 tablet (50 mg total) by mouth 1 (one) time each day. Reorder 02/09/2023 07/05/2024 NIFEdipine CC (ADALAT CC) 90 mg 24 hr tablet Take 1 tablet (90 mg total) by mouth 1 (one) time each day. Reorder 02/09/2023 07/05/2024 documented as of this encounter Care Teams Admission Specialist Relationship Specialty Start Date End Date Geno Katz DO [address] [place] [id number] PCP - General Internal Medicine 12/22/23 documented as of this encounter
== END 2024-07-06 09:57 | disposition home or self-care (01) ==
LOC: HO.HKAS 09:16
PROVIDERS: Visit Provider Internal Medicine Nephrology
DX: N18.31 Chronic kidney disease, stage 3a (principal); I10 Essential (primary) hypertension
CPT/HCPCS: 99214

== ENCOUNTER → 2024-07-06 09:16 | Outpatient (BNVA) | payer OTHER, SELFPAY | PROVIDERS: Visit Provider Internal Medicine Nephrology | DX: I12.9 Hypertensive chronic kidney disease with stage 1 through stage 4 chronic kidney disease, or unspecified chronic kidney disease (principal); N18.31 Chronic kidney disease, stage 3a | CPT/HCPCS: 99212 ==

== ENCOUNTER 2025-01-23 09:18 | Outpatient (AMB) | payer OTHER, SELFPAY ==
[2025-01-23 09:36] VITALS: BP 150/90; BMI 34.9
--- NOTE | 2025-01-23 09:36 | HO.NEPHOV_ITS ---
Vital Signs 01/23/25 09:36 Height 5 ft 6 in Weight 216 lb 4 oz BMI 34.9 BP 150/90 H Blood Pressure Location Rt brachial Position Sitting Intake Visit Reasons: 6mon follow-up w/labs-LVM Commercial Account Officer Required: No Accompanied by: Self / Same As Patient Allergies No Known Allergies Allergy (Verified 01/23/25 09:36) HPI Comments Details: Mr Sy in follow-up of his chronic kidney disease and hypertension. He claims to be compliant with medications. He has gained some weight. He denies taking nonsteroidal anti-inflammatories. He claims to be hydrated himself well. He does not check his blood pressure regularly at home but does it couple of times a month. He claimed that his blood pressure has been at goal at home. He denies any headache, visual disturbances, chest tightness, chest pressure, shortness of breath, paroxysmal nocturnal dyspnea, orthopnea, pedal edema, orthostatic symptoms. He has not blood pressure medication this morning yet [facility] Medical History (Updated 04/28/23 @ 13:18 by Arnie Briseno MD) Hypertension Chronic kidney disease Social History Alcohol intake: never Patient Tobacco Use Status: Never used Tobacco Review of Systems Const All systems reviewed & are unremarkable except as noted in HPI and below Physical Exam Const General: comfortable and no acute distress Orientation/consciousness: patient oriented x3 HEENT Head: Yes normocephalic Mouth: Normal oral and palatal mucosa present Eyes EOM: EOMs intact bilaterally Neck Neck: Yes supple Resp Auscultation: clear to auscultation bilaterally Cardio Jugular venous distension: no JVD Rate: regular rate GI Palpation (GI): Soft to palpation Auscultation: normal bowel sounds General: Yes no CVA tenderness Back/Spine/Pelvis Back: no CVA tenderness Skin General skin exam: no rashes or lesions noted Neuro General: patient oriented x3 and moves all extremities Extrem General: Yes no pedal edema Results Reviewed Nephrology Results: Sodium, (135-145) 139 mmol/L 06/08/23 Potassium, (3.3-5.1) 3.7 mmol/L 06/08/23 Chloride, (96-108) 103 mmol/L 06/08/23 Carbon Dioxide, (22-29) 29 mmol/L 06/08/23 BUN, (9-16) 11 mg/dL 06/08/23 Creatinine, (0.5-1.4) 1.11 mg/dL 06/08/23 Calcium, (8.4-10.2) 9.0 mg/dL 06/08/23 Urine Creatinine 62.52 mg/dL 06/08/23 Protein/Creatinin Ratio TNP 06/08/23 Assessment & Plan Assessment & Plan (1) CKD (chronic kidney disease) stage 3, GFR 30-59 ml/min: Code(s): N18.30 - Chronic kidney disease, stage 3 unspecified Category: Medical Qualifiers: Chronic kidney disease stage 3 subtype: stage 3a (GFR 45-59) Qualified Code(s): N18.31 - Chronic kidney disease, stage 3a (2) Hypertension: Code(s): I10 - Essential (primary) hypertension Category: Medical Qualifiers: Hypertension type: primary hypertension Qualified Code(s): I10 - Essential (primary) hypertension Plan Mr Sy has longstanding hypertension and 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 He needs to lose some weight. He should cut back sodium in the diet. He needs to avoid nonsteroidal anti-inflammatories and maintain good hydration. I encouraged compliance with his medications. I encouraged him to monitor his blood pressure at home regularly. I ordered renal functions for F/U . He denied having left ventricular hypertrophy, proteinuria or retinopathy. He may need Doppler of his renal arteries as well as sleep study. All questions answered. Follow-up appointment given Orders: Orders Creatinine 3 Months I10 - Essential (primary) hypertension, N18.31 - Chronic kidney disease, stage 3a Blood Urea Nitrogen 3 Months I10 - Essential (primary) hypertension, N18.31 - Chronic kidney disease, stage 3a Electrolytes 3 Months I10 - Essential (primary) hypertension, N18.31 - Chronic kidney disease, stage 3a Protein Creatinine Ratio, Ur 3 Months I10 - Essential (primary) hypertension, N18.31 - Chronic kidney disease, stage 3a Coding Level of Care Code Est Pt Level 4 (98783) Diagnoses Stage 3a chronic kidney disease N18.31 Chronic kidney disease stage 3 subtype: stage 3a (GFR 45-59) Primary hypertension I10 Hypertension type: primary hypertension
--- OUTSIDE RECORDS SUMMARY | 2025-01-23 09:52 | XMS_ITS ---
Author Name [facility] Organization Unknown Care Team Organization Name Specialty Phone Email Start Date End Da te [facility] Chrao Christensen Primary Care 06/29/20222023 [facility] Jose Harrington Primary Care 12/30/20212023
--- OUTSIDE RECORDS SUMMARY | 2025-01-23 09:52 | XMS_ITS | Encounter Summary ---
Author Organization [facility] Address [address] [place] [address] Care Team Providers Care Office Worker Name Role Phone Jose Harrington MD Primary Care Provider Geno Welch DO Primary Care Provider [phone] Reason for Visit * Reason Comments E-prescribe Rx Request Encounter Details Date Type Department Care Team Description 01/21/2019 Refill Internal Medicine - [address], [address] [place] [address] Shanti Wood MD [address] [place] [phone] E-prescribe Rx Request Social History Tobacco Use Types Packs/Day Years Used Date Smoking Tobacco: Never Assessed Sex Assigned at Date Recorded Not on file Job Start Date Occupation Industry Not on file Not on file Not on file documented as of this encounter Miscellaneous Notes * Telephone Encounter - Keerthi Santana M.A. - 01/23/2019 1:37 PM EST Please review and advise. You have filled for patient before. * Telephone Encounter - Bailee Machuca - 01/23/2019 1:30 PM EST Not our patient-CT documented in this encounter Plan of Treatment Not on file documented as of this encounter Visit Diagnoses Not on filedocumented in this encounter Care Teams Office Worker Relationship Specialty Start Date End Date Jose Harrington MD PCP - General Family Practice 04/04/21 12/21/23 Geno Katz, [address] [address] PCP - General Internal Medicine 12/22/23 documented as of this encounter
--- OUTSIDE RECORDS SUMMARY | 2025-01-23 09:53 | XMS_ITS | Encounter Summary ---
Author Organization [facility] Address [address] [place] [address] Care Team Providers Care Sheep Farm Manager Name Role Phone Jose Harrington MD Primary Care Provider Geno Welch DO Primary Care Provider [phone] Encounter Details Date Type Department Care Team Description 05/06/2021 Telephone Gastroenterology - [address] [place] [address] John Garcia MD [address] [place] [id number] Social History Tobacco Use Types Packs/Day Years Used Date Smoking Tobacco: Never Smokeless Tobacco: Never Sex Assigned at Date Recorded Not on file Job Start Date Occupation Industry Not on file Not on file Not on file COVID-19 Exposure Response Date Recorded In the last month, have you been in contact with someone who was confirmed or suspected to have Coronavirus / COVID-19? No / Unsure 04/29/2021 3:43 PM EST documented as of this encounter Miscellaneous Notes * Telephone Encounter - Jose Harrington MD - 05/06/2021 11:38 AM EDT Please see below and contact patient to f/u on colonoscopy referral * Telephone Encounter - Suleman Dempsey - 05/06/2021 8:44 AM EDT All attempts to schedule patient have been exhausted. documented in this encounter Plan of Treatment Not on file documented as of this encounter Visit Diagnoses Not on filedocumented in this encounter Care Teams Sheep Farm Manager Relationship Specialty Start Date End Date Jose Harrington MD PCP - General Family Practice 04/04/21 12/21/23 Geno Katz, DO [address] [place] [id number] PCP - General Internal Medicine 12/22/23 documented as of this encounter
--- OUTSIDE RECORDS SUMMARY | 2025-01-23 09:53 | XMS_ITS | Clinical Summary ---
Author Organization [facility] Address [address] [place] [address] Care Team Providers Care Commercial Glazier Name Role Phone Geno Katz DO Primary Care Provider [phone] Allergies No known active allergies Medications Medication Sig Dispensed Refills Start Date End Date Status Cholecalciferol (Vitamin D) 50 MCG (1999) TabIndications:Histor y of vitamin D deficiency Take 1 Tablet by mouth daily. 90 Tablet 3 11/05/2022 Active lisinopril (PRINIVIL,ZESTRIL) 10 MG tabletIndications:Aruna urbano hypertension Take 1 Tablet by mouth daily. 90 Tablet 0 02/09/2023 Active metoprolol (TOPROL-XL) 50 MG 24 hr tabletIndications:Aruna urbano hypertension Take 1 Tablet by mouth daily. 90 Tablet 0 02/09/2023 Active NIFEdipine (ADALAT CC) 90 MG 24 hr tabletIndications:Aruna urbano hypertension Take 1 Tablet by mouth daily. 90 Tablet 1 02/09/2023 Active senna (Senna-Time) 8.6 MG tabletIndications:Con stipation, unspecified constipation type Take 1 Tablet by mouth 2 Times Daily. 60 Tablet 5 02/09/2023 Active [place]-3 Fatty Acids ([facility] Fish Oil) 1200 MG CAPSULE DELAYED RELEASE Take 1 Tablet by mouth daily. 90 Capsule 3 03/02/2023 Active predniSONE (DELTASONE) 20 MG tabletIndications:Oleg k pain, unspecified back location, unspecified back pain laterality, unspecified chronicity Take 2 tablets daily for 3 days then take 1 tablet daily for 3 days, then half tablet daily for another 3 days. 12 Tablet 0 03/02/2023 Active cyclobenzaprine (FLEXERIL) 10 MG tabletIndications:Oleg k pain, unspecified back location, unspecified back pain laterality, unspecified chronicity Take 1 Tablet by mouth at bedtime as needed for Muscle spasms for up to 30 days. 30 Tablet 0 03/02/2023 Active naproxen (NAPROSYN) 500 MG tablet Take 1 Tablet by mouth 2 times daily (with meals) for 10 days. 20 Tablet 0 03/12/2023 Active cetirizine (ZYRTEC) 10 MG tabletIndications:Werner ffy nose TAKE 1 TABLET BY MOUTH EVERY DAY 90 Tablet 0 12/22/2023 Active Active Problems Problem Noted Date Primary hypertension 04/10/2021 Severe obesity (BMI 35.0-35.9 with comor bidity) 04/10/2021 Resolved Problems Problem Noted Date Resolved Date Vitamin D deficiency 04/10/2021 04/29/2021 Immunizations Name Administration Dates Next Due Tdap 10/24/2021 Social History Tobacco Use Types Packs/Day Years Used Date Smoking Tobacco: Never Smokeless Tobacco: Never Sex Assigned at Date Recorded Not on file Job Start Date Occupation Industry Not on file Not on file Not on file Last Filed Vital Signs Vital Sign Reading Time Taken Comments Blood Pressure 180/93 03/12/2023 9:16 AM EST Pulse 79 03/12/2023 9:16 AM EST Temperature 36.4 C (97.5 F) 03/12/2023 9:16 AM EST Respiratory Rate 16 05/27/2021 2:16 PM EDT Oxygen Saturation 98% 03/12/2023 9:16 AM EST Inhaled Oxygen Concentration - - Weight 98.1 kg (216 lb 4.8 oz) 03/02/2023 9:21 A M EST Height 167.6 cm (5' 6 ) 11/05/2022 2:37 PM EDT Body Mass Index 34.91 11/05/2022 2:37 PM EDT Plan of Treatment Health Maintenance Due Date Last Done Comments Covid-19 Vaccine (#1) 06/14/1966 SHINGLES VACCINE (1 of 2) 2016 BASELINE HEALTH EXAM 40-64 10/25/2023 10/24/2021 BMI CHECK/ADVISE 02/23/2024 02/27/2022 (Com pleted), 10/24/2021, 04/29/2021, Additional history exists DEPRESSION SCREENING/FOLLOWUP 02/23/2024 10/24/2021 (Completed) SOCIAL NEEDS SCREENING 02/23/2024 10/24/2021 (Comple alejandra) INFLUENZA (#1) 2024 CHOLESTEROL SCREENING 11/06/2027 11/05/2022, 022 DTAP/TDAP/TD (2 - Td or Tdap) 10/25/2031 10/24/2021 PNEUMOCOCCAL VACCINE FOR HIG H RISK PATIENTS (#1) 12/14/2031 COLON CANCER SCREENING 05/18/2032 05/18/2022 HEPATITIS C SCREENING Completed 05/01/2021 Care Teams Commercial Glazier Relationship Specialty Start Date End Date Geno Katz DO [address] [place] [address] PCP - General Internal Medicine 12/22/23
--- OUTSIDE RECORDS SUMMARY | 2025-01-23 09:53 | XMS_ITS | Encounter Summary ---
Author Organization [facility] Address [address] [place] [address] Care Team Providers Care Senior Media Director Name Role Phone Jose Harrington MD Primary Care Provider Geno Welch DO Primary Care Provider [phone] Encounter Details Date Type Department Care Team Description 04/01/2018 Precision Grinder Report Medical Records [address] [place] [address] Arnie Briseno MD Social History Tobacco Use Types Packs/Day Years Used Date Smoking Tobacco: Never Assessed Sex Assigned at Date Recorded Not on file Job Start Date Occupation Industry Not on file Not on file Not on file documented as of this encounter Plan of Treatment Not on file documented as of this encounter Visit Diagnoses Not on filedocumented in this encounter Care Teams Senior Media Director Relationship Specialty Start Date End Date Jose Harrington MD PCP - General Family Practice 04/04/21 12/21/23 Geno Katz DO [address] [place] [id number] PCP - General Internal Medicine 12/22/23 documented as of this encounter
--- OUTSIDE RECORDS SUMMARY | 2025-01-23 09:53 | XMS_ITS | Encounter Summary ---
Author Organization [facility] Address [address] [place] [address] Care Team Providers Care Artificial Breeding Ranch Supervisor Name Role Phone Jose Harrington MD Primary Care Provider Geno Welch DO Primary Care Provider [phone] Reason for Visit * Reason Onset Date Comments TEST RESULTS 05/12/2021 Encounter Details Date Type Department Care Team Description 05/12/2021 Telephone Adult Medicine [address] [address] Jose Harrington MD TEST RESULTS Social History Tobacco Use Types Packs/Day Years [...] encounter Miscellaneous Notes * Telephone Encounter - Gloria Longo M.A. - 05/12/2021 1:34 PM EDT Lab results printed and mailed to pt per pt request * Telephone Encounter - [place] - 05/12/2021 1:01 PM EDT Inform patient: ANY URGENT OR ABNORMAL RESULTS WIILL RESULT IN A CALL BACK TO THE PATIENT NAVJOT. Pt is requesting that the results of these labs with their properties be mailed to him at the address on file. Type of test: :Labs Date test was performed: 05-01-21 Where was the test performed: [facility] Who ordered this test?: Dr Harrington Is the doctor here today?: YES Can the message wait until the doctor returns?: NO IF PATIENT'S PCP IS NOT IN INSTRUCT PATIENT THAT THEY WILL RECEIVE A CALL BACK WHEN THE PCP IS IN THE OFFICE NEXT. documented in this encounter Plan of Treatment Not on file documented as of this encounter Visit Diagnoses Not on filedocumented in this encounter Care Teams Artificial Breeding Ranch Supervisor Relationship Specialty Start Date End Date Jose Harrington MD PCP - General Family Practice 04/04/21 12/21/23 Geno Katz, DO [address] [place] [id number] PCP - General Internal Medicine 12/22/23 documented as of this encounter
--- OUTSIDE RECORDS SUMMARY | 2025-01-23 09:53 | XMS_ITS | Clinical Summary ---
Author Organization [facility] Address [address] [place] [address] Care Team Providers Care Large Engine Assembler Name Role Phone Margaret House Primary Care Provider [phone] Allergies Active Allergy Reactions Criticality Noted Date Comments Fruit Extracts Rash 11/03/2021 Fresh fruit Pollen Extracts Rash 07/05/2024 Medications atovaquone-prog uaniL (MALARONE) 250-100 mg Take 1 tablet orally daily for 1-2 days before travel, daily during travel and for 7 days after returning home 36 tablet 09/12/2024 12:47 PM EDT 5 Active azithromycin (ZITHROMAX) 500 mg tablet Take 1 tablet (500 mg total) by mouth once a day for 3 days. Take only for severe diarrhea. If symptoms stop before 3 days, you may STOP medication. 3 tablet 09/12/2024 12:47 PM EDT 5 Active lisinopriL (PRINIVIL,ZESTR IL) 10 mg tablet SMARTSI Tablet(s) By Mouth Daily Active metoprolol succinate XL (TOPROL XL) 50 mg tablet Take 50 mg by mouth daily. 5 Active NIFEdipine CC (ADALAT CC) 90 mg 24 hr tablet Take 90 mg by mouth daily. 5 01/02/20 25 Immunizations Immunization Administration Dates Next Due Hep A, Unspecified 09/06/2006,01/11/2006 Measles, Mumps, and Rubella Vaccine 09/12/2024 Meningococcal ACWY Vaccine, Unspecified Formulation 01/11/2006 Poliovirus Vaccine, Inactivated 01/11/2006 Tetanus Toxoid, Reduced Diph theria Toxoid, and Acellular Pertussis Vaccine, Adsorbed 10/24/2021,08/08/2012 Typhoid Vi Capsular Polysacc haride Vaccine 09/12/2024,08/08/2012,09/06/2008,01/11 Yellow Fever Vaccine 01/11/2006 Social History Tobacco Use Types Packs/Day Years Used Date Smoking Tobacco: Never Assessed Sex and Gender Information Value Date Recorded Sex Assigned at Male 08/29/2024 1:06 PM EDT Legal Sex Male 1:03 PM EDT Gender Identity Not on file Sexual Orientation Not on file Last Filed Vital Signs Vital Sign Reading Time Taken Comments Blood Pressure - - Pulse - - Temperature 36.5 C (97.7 F) 09/12/2024 11:26 AM EDT Respiratory Rate - - Oxygen Saturation - - Inhaled Oxygen Concentration - - Weight 96.3 kg (212 lb 4.9 oz) 09/12/2024 11:26 AM EDT Height 167 cm (5' 5.75 ) 09/12/2024 11:26 AM EDT Body Mass Index 34.53 09/12/2024 11:26 AM EDT Plan of Treatment Health Maintenance Due Date Last Done Comments Cologuard 1966 Colon Cancer Screening 1966 Colonoscopy 1966 FOBT / Fit Test 1966 HIV Screening 1966 Hepatitis C Screening 1966 Sigmoidoscopy 1966 Hepatitis B Vaccines (1 of 3 - 19+ 3-dose series) 1985 Pneumococcal Vaccine: 50+ Ye ars (1 of 1 - PCV) 2016 Zoster Vaccines (1 of 2) 2016 Alcohol/Substance Use Screening 02/23/2024 Depression Screening and Follow-Up 02/23/2024 Social Drivers of Health Annual Screening 02/23/2024 Influenza Vaccine (#1) 2024 COVID-19 Vaccine ( - 2024- season) 2024 Diabetes Screening 07/06/2027 07/05/2024 DTaP,Tdap,and Td Vaccines (3 - Td or Tdap) 10/25/2031 10/24/2021, 08/08/2012 Insurance [employer] Care Teams Large Engine Assembler Relationship Specialty Start Date End Date Margaret House [address] [facility] [place] [address] PCP - General Internal Medicine 08/29/24
--- OUTSIDE RECORDS SUMMARY | 2025-01-23 09:53 | XMS_ITS | Encounter Summary ---
Author Organization [facility] Address [address] [place] [address] Care Team Providers Care Artificial Breeding Distributor Name Role Phone EnrriqueGeno resendez Primary Care Provider [phone] Reason for Visit * Reason Onset Date Comments Results 11/22/2024 Encounter Details Date Type Department Care Team (Late st Contact Info) Description 11/22/2024 [facility] [address] [place] [address] Brien rAauz NP [address] [place] [address] Social History Tobacco Use Types Packs/Day Years Used Date Smoking Tobacco: Never Smokeless Tobacco: Never Sex and Gender Information Value Date Recorded Sex Assigned at Male 08/01/2024 3:12 PM EDT Legal Sex Male 6:16 AM EST Gender Identity Male 08/01/2024 3:12 PM EDT Sexual Orientation Straight 08/01/2024 3: 12 PM EDT documented as of this encounter Progress Notes * Nancy Campo - 11/24/2024 10:33 AM EDT Patient was seen in our office by Vega Albright. Patient calls this morning requesting to briefly discuss results over the phone. Best telephone number to reach the patient is at [phone] documented in this encounter Plan of Treatment Upcoming Encounters Date Type Department Care Team (Late st Contact Info) Description 01/31/2025 8:45 AM EST Office Visit Internal Medicine - [facility] [address] [place] [address] Brien Arauz, ELIZABETH [address] [place] [address] documented as of this encounter Visit Diagnoses Not on filedocumented in this encounter Care Teams Artificial Breeding Distributor Relationship Specialty Start Date End Date Geno Katz DO [address] [place] [address] PCP - General Internal Medicine 12/22/23 documented as of this encounter
--- OUTSIDE RECORDS SUMMARY | 2025-01-23 09:53 | XMS_ITS | Encounter Summary ---
Author Organization [facility] Address [address] [place] [address] Care Team Providers Care Property Manager Name Role Phone Jose Harrington MD Primary Care Provider Geno Welch DO Primary Care Provider [phone] Reason for Visit * Reason Comments E-prescribe Rx Request Encounter Details Date Type Department Care Team Description 01/20/2019 Refill Internal Medicine - [address], [address] [place] [address] Shanti Wood MD [address] [place] [phone] E-prescribe Rx Request Social History Tobacco Use Types Packs/Day Years Used Date Smoking Tobacco: Never Assessed Sex Assigned at Date Recorded Not on file Job Start Date Occupation Industry Not on file Not on file Not on file documented as of this encounter Miscellaneous Notes * Telephone Encounter - Ragini Wilkerson - 02/01/2019 1:46 PM EST Due to this not being one of our patients can you please close the message. * Telephone Encounter - Bailee Machuca - 01/25/2019 1:35 PM EST This is not our patient documented in this encounter Plan of Treatment Not on file documented as of this encounter Visit Diagnoses Not on filedocumented in this encounter Care Teams Property Manager Relationship Specialty Start Date End Date Jose Harrington MD PCP - General Family Practice 2/11/22 10/29/24 Geno Katz, [address] [address] PCP - General Internal Medicine 12/22/23 documented as of this encounter
--- OUTSIDE RECORDS SUMMARY | 2025-01-23 09:53 | XMS_ITS | Encounter Summary ---
Author Organization [facility] Address [address] [place] [address] Care Team Providers Care Lining Sewer Name Role Phone Jose Harrington MD Primary Care Provider Geno Welch DO Primary Care Provider [phone] Reason for Visit * Reason Onset Date Comments External Sleep Study Request 05/08/2021 sle ep study Encounter Details Date Type Department Care Team Description 05/08/2021 Telephone Adult Medicine - [address] [address] Jose Harrington MD External Sleep Study Request (sleep study) Social History Tobacco Use Types Packs/Day Years [...] encounter Miscellaneous Notes * Telephone Encounter - Margaret Ang - 05/08/2021 3:27 PM EDT [facility]- no auth requried for home study Order faxed to sleep medicine services. They will contact patient with appointment.Notification letter mailed. documented in this encounter Plan of Treatment Not on file documented as of this encounter Visit Diagnoses Not on filedocumented in this encounter Care Teams Lining Sewer Relationship Specialty Start Date End Date Jose Harrington MD PCP - General Family Practice 04/04/21 12/21/23 Geno Katz, [address] [address] PCP - General Internal Medicine 12/22/23 documented as of this encounter
--- OUTSIDE RECORDS SUMMARY | 2025-01-23 09:53 | XMS_ITS | Encounter Summary ---
Author Organization [facility] Address [address] [place] [address] Care Team Providers Care Tool And Die Technician Name Role Phone Geno Katz DO Primary Care Provider Encounter Details Date Type Department Care Team (Late st Contact Info) Description 12/22/2024 [facility] [address] [place] [address] Brien Arauz NP [address] [place] [phone] Social History Tobacco Use Types Packs/Day Years Used Date Smoking Tobacco: Never Smokeless Tobacco: Never Sex and Gender Information Value Date Recorded Sex Assigned at Male 08/01/2024 3:12 PM EDT Legal Sex Male 6:16 AM EST Gender Identity Male 08/01/2024 3:12 PM EDT Sexual Orientation Straight 08/01/2024 3: 12 PM EDT documented as of this encounter Plan of Treatment Upcoming Encounters Date Type Department Care Team (Late st Contact Info) Description 01/31/2025 8:45 AM EST Office Visit Internal Medicine - [address] [phone] Brien Arauz NP [address] [place] [phone] documented as of this encounter Visit Diagnoses Not on filedocumented in this encounter Care Teams Tool And Die Technician Relationship Specialty Start Date End Date Geno Katz DO [address] [place] [address] PCP - General Internal Medicine 12/22/23 documented as of this encounter
--- OUTSIDE RECORDS SUMMARY | 2025-01-23 09:53 | XMS_ITS | Clinical Summary ---
Author Organization [place] [address] [facility] Address [address] [place], [place] [address] [address] Phone Care Team Providers Care Process Laboratory Specialist Name Role Phone Geno Katz Primary Care Provider Allergies Active Allergy Reactions Criticality Noted Date Comments Fruit Extracts 07/05/2024 Fresh fruit Pollen Extracts 07/05/2024 Medications cetirizine (ZyrTEC) 10 mg tablet Take 1 tablet (10 mg total) by mouth 1 (one) time each day. 12/22/19 24 Active cholecalciferol (VITAMIN D-3) 50 mcg (2,000 unit) tablet Take 1 tablet (2,000 Units total) by mouth 1 (one) time each day. 11/06/19 23 Active omega-3 (FISH OIL) 360-1,200 mg capsule Cherry [place]-3 Fatty Acids ([facility] Fish Oil) 1200 MG CAPSULE DELAYED RELEASE- Take 1 Tablet by mouth daily. 03/02/19 24 Active cyclobenzaprine (FLEXERIL) 10 mg tablet Take 1 tablet (10 mg total) by mouth 3 (three) times a day if needed for muscle spasms for up to 7 days. 21 each 04/29/19 25 Active lisinopriL (PRINIVIL,ZESTRIL ) 10 mg tabletIndications :Primary hypertension Take 1 tablet (10 mg total) by mouth 1 (one) time each day. 90 each 11/23/19 25 Active metoprolol succinate (TOPROL-XL) 50 mg 24 hr tabletIndications :Primary hypertension Take 1 tablet (50 mg total) by mouth 1 (one) time each day. 90 each 11/23/19 25 026 Active lidocaine (LIDODERM) 5 % patch Apply 1 patch topically 1 (one) time each day. 06/03/19 Active senna 8.6 mg tabletIndications :Constipation, unspecified constipation type Take 1 tablet (8.6 mg total) by mouth 1 (one) time each day. 90 each 1 12/21/19 25 026 Active amLODIPine (NORVASC) 10 mg tabletIndications :Primary hypertension Take 1 tablet (10 mg total) by mouth 1 (one) time each day. 90 each 1 12/21/19 25 Active fish oil (OMEGA-3) 60-90-500 mg capsuleIndication s:Hyperlipidemia, unspecified hyperlipidemia type Take 2 capsules (1,000 mg total) by mouth 2 (two) times a day. 120 capsule 11 12/21/19 25 026 Active ibuprofen (ADVIL,MOTRIN) 800 mg tabletIndications :Chronic bilateral low back pain without sciatica TAKE 1 TABLET BY MOUTH EVERY DAY NEEDED FOR MILD PAIN 90 tablet 01/17/20 25 Active ibuprofen (ADVIL,MOTRIN) 800 mg tabletIndications :Chronic bilateral low back pain without sciatica TAKE 1 TABLET BY MOUTH EVERY DAY NEEDED FOR MILD PAIN 90 tablet 10/10/19 025 Discontinued Active Problems Problem Noted Date Diagnosed Date Severe obesity (BMI 35.0-35. 9 with comorbidity) (CMS/[facility] V24, CMS/[facility] V28) 01/18/2024 Primary hypertension 04/10/2021 Encounters Date Type Department Care Team Description 12/22/2024 Results Follow-Up Internal Medicine - [address] [phone] Brien Arauz NP 12/20/2024 9:40 AM EDT Lab Draw Station [address] Urinary frequency 12/20/2024 8:45 AM EDT Office Visit Internal Medicine - [address] [phone] Brien Arauz NP Primary hypertension (Primary Dx); Constipation, unspecified constipation type; Urinary frequency; Hyperlipidemia, unspecified hyperlipidemia type 11/22/2024 10:04 AM EDT - 11/22/2024 11:59 PM EDT Hospital Encounter Xray - [facility] [place] [phone] Back pain, unspecified back location, unspecified back pain laterality, unspecified chronicity Discharge Disposition: Home or Self Care 11/22/2024 8:45 AM EDT Office Visit Internal Medicine - [facility] [place] [phone] Brien Arauz NP Back pain, unspecified back location, unspecified back pain laterality, unspecified chronicity (Primary Dx); Chronic bilateral low back pain without sciatica; Primary hypertension; Constipation, unspecified constipation type 11/22/2024 Results Follow-Up Internal Medicine - [facility] [place] [phone] Brien Arauz NP from Last 3 Months Immunizations Immunization Administration Dates Next Due Tdap Tetanus diptheria [...] Orientation Straight 08/01/2024 3: 12 PM EDT Obstetrics History Last Filed Vital Signs Vital Sign Reading Time Taken Comments Blood Pressure 154/86 12/20/2024 9:04 AM EDT Pulse 72 12/20/2024 9:04 AM EDT Temperature 36.4 C (97.5 F) 04/28/2024 9:39 AM EST Respiratory Rate - - Oxygen Saturation 96% 04/28/2024 9:39 AM EST Inhaled Oxygen Concentration - - Weight 96 kg (211 lb 11.2 oz) 12/20/2024 9:04 AM EDT Height 170.2 cm (5' 7 ) 12/20/2024 9:04 AM EDT Body Mass Index 33.16 12/20/2024 9:04 AM EDT Plan of Treatment Upcoming Encounters Date Type Department Care Team (Late st Contact Info) Description 01/31/2025 8:45 AM EST Office Visit Internal Medicine - [facility] [address] [place] [phone] Brien Arauz NP [address] [place] [address] Health Maintenance Due Date Last Done Comments Hepatitis B Vaccines (1 of 3 - 19+ 3-dose series) 1985 IPV Vaccines (2 of 3 - Adult catch-up series) 02/08/2006 01/11/2006 RSV Immunization Adult Patients (1 - Risk 50-74 years 1-dose series) 2016 Zoster Vaccines (1 of 2) 2016 Depression Screening 02/23/2024 COVID-19 Vaccine (1 - season) 2024 Influenza Vaccine (#1) 2024 Social Influencers of Health Screening 07/05/2025 07/05/2024 Hypertension/CHF/CAD Annual BMP Blood Test 11/22/2025 11/22/2024, 07/05/2024, 03/01/2024, Additional history exists Cholesterol Screening (Lipid Panel) 07/05/2029 07/05/2024, 11/05/2022 DTaP,Tdap,and Td Vaccines (3 - Td or Tdap) 10/25/2031 10/24/2021, 08/08/2012 Colorectal Cancer Screening: Colonoscopy 05/18/2032 05/18/2022 Meningococcal ACWY Vaccine Aged Out 01/11/2006 N o longer eligible based on patient's age to complete this topic Hepatitis A Vaccines Aged Out 09/06/2006, 01/12/20 06 No longer eligible based on patient's age to complete this topic Hepatitis C Screening Completed 05/01/2021 MMR Vaccines Aged Out 09/12/2024 No longer eligi ble based on patient's age to complete this topic HIB Vaccines Aged Out No longer eligi ble based on patient's age to complete this topic HIV Screening Discontinued HPV Vaccines Aged Out No longer eligi ble based on patient's age to complete this topic Meningococcal B Vaccine Aged Out No l onger eligible based on patient's age to complete this topic Pneumococcal Vaccine: 50+ Years Discontinued RSV Immunization Patients Under 20 months Aged Out No longer eligible based on patient's age to complete this topic Varicella Vaccines Aged Out No longer eligible based on patient's age to complete this topic Procedures Procedure Name Priority Date/Time Associated Diagnosis Comments [facility]STIAN[facility] URINE CULTURE TUBE Routine 12/20/2024 9:43 AM EDT Urinary frequency URINALYSIS WITH REFLEX MICROSCOPIC AND CULTURE Routine 12/20/2024 9:43 AM EDT Urinary frequency URINALYSIS WITH REFLEX MICROSCOPIC AND CULTURE Routine 12/20/2024 9:43 AM EDT Urinary frequency COMPREHENSIVE METABOLIC PANEL Routine 11/22/2024 10:30 AM EDT Primary hypertension XR LUMBAR SPINE 4+ VIEWS Routine 11/22/2024 10:10 AM EDT Back pain, unspecified back location, unspecified back pain laterality, unspecified chronicity LIPID PANEL WITH REFLEX TO DIRECT LDL Routine 07/05/2024 10:01 AM EDT Screening for cardiovascular condition HM COLONOSCOPY Routine 05/18/2022 HEPATITIS C SCREENING Routine 05/01/2021 from Last 3 Months or Most Recently Relevant to Health Maintenance Results * Urinalysis with reflex microscopic and culture (12/20/2024 9:43 AM EDT) Specific [place] Urine 1.012 1.003 - 1.030 LAB URINALYSIS - AUTOMATED METHOD 12/20/2024 11:52 AM EDT [facility] pH, Urine 5.5 5.0 - 8.0 pH LAB URINALYSIS - AUTOMATED METHOD 12/20/2024 11:52 AM EDT [facility] Leukocytes, Urine Negative Negative LAB URINALYSIS - AUTOMATED METHOD 12/20/2024 11:[address] [facility] Nitrite, Urine Negative Negative LAB URINALYSIS - AUTOMATED METHOD 12/20/2024 11:[address] [facility] Protein, Urine Negative <=Trace mg/dL LAB URINALYSIS - AUTOMATED METHOD 12/20/2024 11:[address] [facility] Glucose, Urine Negative Negative mg/dL LAB URINALYSIS - AUTOMATED METHOD 12/20/2024 11:[address] [facility] Ketones, Urine Negative Negative mg/dL LAB URINALYSIS - AUTOMATED METHOD 12/20/2024 11:[address] [facility] Urobilinogen, Urine 0.2 0.2 - 1.0 mg/dL LAB URINALYSIS - AUTOMATED METHOD 12/20/2024 11:[address] [facility] Bilirubin, Urine Negative Negative LAB URINALYSIS - AUTOMATED METHOD 12/20/2024 11:[address] [facility] Blood, Urine Negative Negative LAB URINALYSIS - AUTOMATED METHOD 12/20/2024 11:[address] [facility] Urine Urine specimen obtained by clean catch procedure / Unknown Non-blood Collection / Unknown 12/20/2024 9:43 AM EDT 12/20/2024 9:43 AM EDT us Brien Arauz [facility]IRL LAB URINE ORDERABLES Final Res ult [facility] [address] [place] [address], * Christianson urine culture tube (12/20/2024 9:43 AM EDT) Extra Tube Hold for add-ons. 12/20/2024 12:01 PM EDT [facility] Comment:Auto resulted. Urine Urine specimen obtained by clean catch procedure / Unknown Non-blood Collection / Unknown 12/20/2024 9:43 AM EDT 12/20/2024 9:43 AM EDT us Brien Arauz NP LAB URINE ORDERABLES Final Res ult [facility] [address] [place] [address], [place] [phone] * Comprehensive metabolic panel (11/22/2024 10:30 AM EDT) Sodium 136 133 - 145 mmol/L LAB CHEMISTRY METHOD 11/22/2024 4:[address] [facility] Potassium 4.3 3.5 - 5.5 mmol/L LAB CHEMISTRY METHOD 11/22/2024 4:[address] [facility] Chloride 103 96 - 110 mmol/L LAB CHEMISTRY METHOD 11/22/2024 4:[address] [facility] CO2 29 21 - 32 mmol/L LAB CHEMISTRY METHOD 11/22/2024 4:[address] [facility] Anion Gap 4 3 - 11 LAB CHEMISTRY METHOD 11/22/2024 4:[address] [facility] Glucose 98 70 - 100 mg/dL LAB CHEMISTRY METHOD 11/22/2024 4:[address] [facility] BUN 14 5 - 25 mg/dL LAB CHEMISTRY METHOD 11/22/2024 4:[address] [facility] Creatinine 1.09 0.70 - 1.30 mg/dL LAB CHEMISTRY METHOD 11/22/2024 4:[address] [facility] eGFR 79 >=60 mL/min/1. 73m2 LAB CHEMISTRY METHOD 11/22/2024 4:[address] [facility] Comment:Calculation based on the Chronic Kidney Disease Epidemiology Collaboration (CKD-EPI) equation refit without adjustment for race. BUN/Creatinine Ratio 12.8 LAB CHEMISTRY METHOD 11/22/2024 4:38 PM T [facility] Calcium 9.1 8.5 - 10.5 mg/dL LAB CHEMISTRY METHOD 11/22/2024 4:38 PM EDT [facility] AST (SGOT) 20 10 - 42 unit/L LAB CHEMISTRY METHOD 11/22/2024 4:38 PM EDT [facility] ALT (SGPT) 22 10 - 60 unit/L LAB CHEMISTRY METHOD 11/22/2024 4:38 PM EDT [facility] Alkaline Phosphatase 64 42 - 121 unit/L LAB CHEMISTRY METHOD 11/22/2024 4:38 PM EDT [facility] Total Protein 6.7 6.0 - 8.0 g/dL LAB CHEMISTRY METHOD 11/22/2024 4:[address] [facility] Albumin 3.7 3.2 - 5.0 g/dL LAB CHEMISTRY METHOD 11/22/2024 4:38 PM EDT [facility] Total Bilirubin 0.5 0.0 - 1.4 mg/dL LAB CHEMISTRY METHOD 11/22/2024 4:38 PM EDT [facility] Blood Venous blood specimen / Unknown Venipuncture / Unknown 11/22/2024 10:30 AM EDT 11/22/2024 10:30 AM EDT us Brien Arauz NP LAB BLOOD ORDERABLES Final Res ult [facility] [address] [place] [address], * XR Lumbar Spine 4+ Views (11/22/2024 10:10 AM EDT) Anatomical Region Laterality Modality Spine, L-spine Radiographic Soraida ging 11/22/2024 7:11 PM EDT Impressions 11/22/2024 7:16 PM EDT Progressive multilevel degenerative changes. -------- FINAL REPORT -------- Dictated By: Joyce Chapman Dictated Date: 11/22/2024 19:11 ET Assigned Physician: Joyce Chapman Reviewed and Electronically Signed By: Joyce Chapman Signed Date: 11/22/2024 19:16 ET Workstation ID: [id number] Transcribed By: Self Edit Transcribed Date: 11/22/2024 19:11 ET Narrative 11/22/2024 7:16 PM EDT EXAM: Lumbar spine x-ray HISTORY: Back pain. COMPARISON: 03/12/2023 FINDINGS: 4 views of the lumbar spine were performed. 5 lumbar type vertebral bodies. Vertebral body heights are maintained. Intervertebral disc spaces are preserved. Progressive multilevel marginal osteophytes. No evidence of spondylolysis or definite spondylolisthesis. Multilevel facet arthropathy, greater and progressive at the lower 2 levels. Moderately severe degenerative changes involving the left hip. Procedure Note Joyce Chapman MD - 11/22/2024 EXAM: Lumbar spine x-ray HISTORY: Back pain. COMPARISON: 03/12/2023 FINDINGS: 4 views of the lumbar spine were performed. 5 lumbar type vertebral bodies. Vertebral body heights are maintained.Intervertebral disc spaces are preserved. Progressive multilevel marginalosteophytes. No evidence of spondylolysis or definite spondylolisthesis.Multilevel facet arthropathy, greater and progressive at the lower 2levels. Moderately severe degenerative changes involving the left hip. IMPRESSION: Progressive multilevel degenerative changes. -------- FINAL REPORT -------- Dictated By: Joyce Chapman Dictated Date: 11/22/2024 19:11 ET Assigned Physician: Joyce Chapman Reviewed and Electronically Signed By: Joyce Chapman Signed Date: 11/22/2024 19:16 ET Workstation ID: [id number] Transcribed By: Self Edit Transcribed Date: 11/22/2024 19:11 ET us Brien Arauz NP IMG XR PROCEDURES Final Result * (ABNORMAL) Lipid panel with reflex to direct LDL (07/05/2024 10:01 AM EDT) Cholesterol 207(H) 0 - 200 mg/dL LAB CHEMISTRY METHOD 07/05/2024 2:07 PM EDT [facility] Triglycerides 91 0 - 150 mg/dL LAB CHEMISTRY METHOD 07/05/2024 2:07 PM EDT [facility] HDL 60 >=40 mg/dL LAB CHEMISTRY METHOD 07/05/2024 2:07 PM EDT [facility] LDL Calculated 129(H) 0 - 100 mg/dL LAB CHEMISTRY METHOD 07/05/2024 2:07 PM EDT [facility] VLDL Cholesterol Sai 18.2 mg/dL LAB CHEMISTRY METHOD 07/05/2024 2:07 PM T [facility] Non HDL Chol. (LDL+VLDL) 147(H) <145 mg/dL LAB CHEMISTRY METHOD 07/05/2024 2:07 PM T [facility] Chol/HDL Ratio 3.5 0.0 - 4.4 LAB CHEMISTRY METHOD 07/05/2024 2:07 PM T [facility] Blood Venous blood specimen / Unknown Venipuncture / Unknown 07/05/2024 10:01 AM EDT 07/05/2024 10:01 AM EDT Leonela Burnett NP LAB BLOOD ORDERABLES Final Resul t [facility] [address] [place] [address], * Colonoscopy (05/18/2022) Pathologist [facility] Colonoscopy no interpretation , abstracted Anatomical Region Laterality Modality Other Historical Provider HEALTH MAINTENANCE Final Result * Hepatitis C Screening (05/01/2021) Pathologist [facility] Hepatitis C Screening abstracted Historical Provider HEALTH MAINTENANCE Final Result from Last 3 Months or Most Recently Relevant to Health Maintenance Insurance [facility] Care Teams Process Laboratory Specialist Relationship Specialty Start Date End Date Geno Katz DO [address] [facility] [place] [id number] PCP - General Internal Medicine 12/22/23
== END 2025-01-23 10:05 | disposition home or self-care (01) ==
LOC: HO.HKAS 09:18
PROVIDERS: Visit Provider Internal Medicine Nephrology
DX: N18.31 Chronic kidney disease, stage 3a (principal); I10 Essential (primary) hypertension
CPT/HCPCS: 99214

== ENCOUNTER → 2025-01-23 09:18 | Outpatient (BNVA) | payer OTHER, SELFPAY | PROVIDERS: Visit Provider Internal Medicine Nephrology | DX: I12.9 Hypertensive chronic kidney disease with stage 1 through stage 4 chronic kidney disease, or unspecified chronic kidney disease (principal); N18.31 Chronic kidney disease, stage 3a; Z71.3 Dietary counseling and surveillance | CPT/HCPCS: 99212 ==